=== PATIENT | female | born 1990 | race Caucasian/White ===

== ENCOUNTER 2022-01-05 08:44 | Outpatient (CLI) | payer BC, SELFPAY | END 2022-01-05 08:45 | disposition home or self-care (01) | PROVIDERS: PCP Physician Assistant Medical; Visit Provider Registered Nurse | DX: Z01.419 Encounter for gynecological examination (general) (routine) without abnormal findings (principal); Z12.4 Encounter for screening for malignant neoplasm of cervix; Z13.1 Encounter for screening for diabetes mellitus; Z11.3 Encounter for screening for infections with a predominantly sexual mode of transmission; Z13.6 Encounter for screening for cardiovascular disorders | CPT/HCPCS: 88174 ==

== ENCOUNTER 2022-01-26 08:44 | Outpatient (CLI) | payer BC, SELFPAY ==
[2022-01-26 11:09] LABS: Cholesterol* 175 mg/dL (90-199); Glucose* 86 mg/dL (60-115)
[2022-01-26 11:10] LABS: HDL Cholesterol* 60 mg/dL (>=50); LDL Cholesterol Calculated 95 mg/dL (<100); Triglycerides* 101 mg/dL (40-149)
== END 2022-01-26 08:45 | disposition home or self-care (01) ==
LOC: NFLDREF 08:59
PROVIDERS: Visit Provider Registered Nurse
DX: Z13.1 Encounter for screening for diabetes mellitus (principal); Z13.6 Encounter for screening for cardiovascular disorders
CPT/HCPCS: 80061; 82947

== ENCOUNTER 2022-03-16 07:43 | Outpatient (CLI) | payer BC, SELFPAY ==
--- NOTE | 2022-03-16 08:15 | CRLHL7_ITS ---
For Patients: As a result of the Cures Act, medical imaging exams and procedure reports are released immediately into your electronic medical record. You may view this report before your referring provider. If you have questions, please contact your health care provider. INDICATION: First trimester scan, establish dates. COMPARISON: None. TECHNIQUE: Real-time solomon-scale imaging of the pelvis was performed. FINDINGS: Sonographic imaging demonstrates a single living intrauterine gestation. The embryo demonstrates a regular cardiac rate measuring 152 beats per minute. The embryo`s crown-rump length measurement of 1.2 cm corresponds to a gestational age of 7 weeks 3 days with a sonographic due date of 10/30/2022. There is a normal-appearing yolk sac. There are no gross abnormalities noted within the embryo at this early state of development. The gestational sac has a normal appearance. There is no evidence of a perigestational hemorrhage. The amount of fluid within the sac appears appropriate for gestational age. The cervix is closed. The myometrium appears normal. The ovaries are of normal size. Corpus luteal cyst left ovary. There are no suspicious fluid collections noted in the cul-de-sac. IMPRESSION: Normal first trimester OB ultrasound exam. Gestational age calculated at 7 weeks 3 days with a sonographic due date of 10/30/2022. Dictated by Nabil Blankenship MD @ 03/16/2022 8:41:30 AM (Electronically Signed)
== END 2022-03-16 07:44 | disposition home or self-care (01) ==
PROVIDERS: Visit Provider Registered Nurse
DX: Z34.91 Encounter for supervision of normal pregnancy, unspecified, first trimester (principal); Z3A.01 Less than 8 weeks gestation of pregnancy
CPT/HCPCS: 76817; 86592; 86703; 86762; 86787; 86803; 86850; 86900; 86901; 87086; 87340; 87491; 87591

== ENCOUNTER 2022-06-13 13:44 | Outpatient (CLI) | payer BC, SELFPAY | END 2022-06-13 13:45 | disposition home or self-care (01) | PROVIDERS: PCP Obstetrics & Gynecology; Visit Provider Pediatrics Neonatal-Perinatal Medicine | DX: Z34.92 Encounter for supervision of normal pregnancy, unspecified, second trimester (principal); Z3A.20 20 weeks gestation of pregnancy | CPT/HCPCS: 76811 ==

== ENCOUNTER 2022-08-08 08:53 | Outpatient (CLI) | payer BC, SELFPAY | END 2022-08-08 08:54 | disposition home or self-care (01) | PROVIDERS: PCP Obstetrics & Gynecology; Visit Provider Obstetrics & Gynecology | DX: O26.893 Other specified pregnancy related conditions, third trimester (principal); Z67.91 Unspecified blood type, Rh negative; Z3A.28 28 weeks gestation of pregnancy | CPT/HCPCS: 85461; 86592; 86850; J2791 ==

== ENCOUNTER 2022-10-03 09:36 | Outpatient (CLI) | payer BC, SELFPAY ==
[2022-10-04 13:29] LABS: Strep B DNA Probe POSITIVE (Negative); Strep B Pen/Amox Allergy No
== END 2022-10-03 09:37 | disposition home or self-care (01) ==
LOC: NFLDREF 09:40
PROVIDERS: PCP Obstetrics & Gynecology; Visit Provider Obstetrics & Gynecology
DX: Z34.93 Encounter for supervision of normal pregnancy, unspecified, third trimester (principal); Z3A.36 36 weeks gestation of pregnancy
CPT/HCPCS: 87081; 87653

== ENCOUNTER 2022-12-12 13:27 | Outpatient (CLI) | payer BC, SELFPAY | END 2022-12-12 13:28 | disposition home or self-care (01) | LOC: NFLDREF 13:28 | PROVIDERS: PCP Obstetrics & Gynecology; Visit Provider Obstetrics & Gynecology | DX: Z39.2 Encounter for routine postpartum follow-up (principal); Z13.6 Encounter for screening for cardiovascular disorders; Z13.1 Encounter for screening for diabetes mellitus | CPT/HCPCS: 80061; 82947 ==

== ENCOUNTER 2023-02-19 08:38 | Day surgery (SDC) | payer BC, SELFPAY ==
[2023-02-19 08:51] VITALS: BMI 27.8
[2023-02-19 08:57] VITALS: BP 127/90; PULSE 82; RESP 20; TEMP 37.3; O2SAT 99
[2023-02-19 08:59] LABS: Ur HCG Qualitative* Negative (Negative)
[2023-02-19] MEDS: LACTATED RINGERS 1000 ML 1,000 ML 100 ML IV (09:05)
[2023-02-19] MEDS: SODIUM CHLORIDE 0.9 % (FLUSH) 10 ML SYRINGE IVF (09:08)
[2023-02-19 12:15] VITALS: BP 124/73; PULSE 70; RESP 20; O2SAT 99
--- NOTE | 2023-02-19 12:23 | W.ANESCHARGE ---
Anesthesia Charges Start Date/Time Anesthesia Start Date: 02/19/23 Anesthesia Start Time: 11:15 Stop Date/Time Anesthesia Stop Date: 02/19/23 Anesthesia Stop Time: 12:11
--- NOTE | 2023-02-19 12:27 | P.GYNPRC_ITS ---
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 Surgeon: Harris MD Any Commodity Buyer: Cara Back Estimated blood loss (mL): 10 Pathology: none sent Condition: stable Disposition: same day Findings: 2 cm hymenal tag arising from the left of midline at the introitus. Irregular redundant perineal skin. 3-4 finger spread at the introitus prior to the proce dure. Procedure Description: After obtaining informed consent, the patient was taken to the operating room where she received monitored anesthesia care. She was prepared and draped in the normal, sterile fashion in the dorsal lithotomy position. Examination was performed under anesthesia with the findings noted above. A total of 10 mL of 1% lidocaine with epinephrine was injected into the perineal skin and proximal vagina at the introitus. The hymenal tag was grasped and excised with a scalpel at its base. The excision base was reapproximated with a subcuticular figure of X suture of 3-0 chromic. A 2nd interrupted stitch of 3-0 chromic was placed over the mucosal surface. Excellent hemostasis was visualized. Allis clamps were placed at the posterior fourchette at the 5 and 7 o'clock positions. A v- shaped segment of perineal skin was then excised using the scalpel. A smaller inverted v-shaped portion of vaginal mucosa was also excised with the scalpal. The perineal body was reinforced with 2 interrupted sutures of 2-0 Vicryl. The vaginal mucosa was reapproximated in a running, locking fashion with 2-0 Vicryl. The remaining perineal skin was reapproximated in the usual layered sterile fashion using the 2-0 Vicryl suture. The knot was tied at the level of the hymen. Following the procedure the patient had a 2-3 finger spread at the introitus. The patient tolerated the procedure well. Sponge, lap, and needle counts were reported as correct x2. The patient was taken to the recover room awake and in stable condition.
[2023-02-19 12:30] VITALS: BP 116/72; PULSE 73; RESP 20; O2SAT 96
[2023-02-19 12:45] VITALS: BP 121/81; PULSE 61; RESP 20; O2SAT 100
--- NOTE | 2023-02-19 12:51 | SUR.PHASEII ---
Pt tolerated toast juice and soda Discharge instructions gone over with Pt. Pt understood. Pt wanting to rest for awhile v.s.s.
[2023-02-19 13:13] VITALS: BP 117/80; PULSE 73; RESP 20; TEMP 36.7; O2SAT 100
[2023-02-19 13:45] VITALS: BP 135/90; PULSE 75; RESP 20; O2SAT 95
== END 2023-02-19 14:00 | disposition home or self-care (01) ==
PROVIDERS: PCP Family Medicine; Visit Provider Obstetrics & Gynecology
PROC: 0UQG0ZZ Repair Vagina, Open Approach (ICD-10-PCS; CPT 56810; principal; 2023-02-19 09:45)
DX: N94.819 Vulvodynia, unspecified (principal); N89.8 Other specified noninflammatory disorders of vagina
CPT/HCPCS: 56810; 56700; 81025; 940; A9270; J1885; J2250; J2704; J3010; J7120

== ENCOUNTER 2023-11-07 09:11 | Outpatient (CLI) | payer BC, SELFPAY | END 2023-11-07 09:12 | disposition home or self-care (01) | PROVIDERS: PCP Family Medicine; Visit Provider Registered Nurse | DX: Z13.220 Encounter for screening for lipoid disorders (principal); Z13.1 Encounter for screening for diabetes mellitus | CPT/HCPCS: 80061; 82947 ==

== ENCOUNTER 2024-05-13 07:59 | Outpatient (CLI) | payer BC, SELFPAY ==
--- NOTE | 2024-05-13 08:15 | CRLHL7_ITS ---
For Patients: As a result of the Cures Act, medical imaging exams and procedure reports are released immediately into your electronic medical record. You may view this report before your referring provider. If you have questions, please contact your health care provider. INDICATION: First trimester scan, establish dates. COMPARISON: None. TECHNIQUE: Real-time solomon-scale imaging of the pelvis was performed. FINDINGS: Sonographic imaging demonstrates a single living intrauterine gestation. The embryo demonstrates a regular cardiac rate measuring 180 beats per minute. The embryo`s crown-rump length measurement of 2.4 cm corresponds to a gestational age of 9 weeks 0 days with a sonographic due date of 12/16/2024. There is a normal-appearing yolk sac. There are no gross abnormalities noted within the embryo at this early state of development. The gestational sac has a normal appearance. There is no evidence of a perigestational hemorrhage. The amount of fluid within the sac appears appropriate for gestational age. The cervix is closed. The myometrium appears normal. Unremarkable right ovary. Corpus luteal cyst left ovary measures 2.7 x 2.0 x 1.8 cm. There are no suspicious fluid collections noted in the cul-de-sac. IMPRESSION: Single living intrauterine with sonographic gestational age 9 weeks 0 days and sonographic due date of 12/16/2024. Dictated by Nabil Blankenship MD @ 05/13/2024 12:02:41 PM (Electronically Signed)
== END 2024-05-13 08:00 | disposition home or self-care (01) ==
LOC: US 08:01
PROVIDERS: Visit Provider Registered Nurse
DX: Z34.91 Encounter for supervision of normal pregnancy, unspecified, first trimester (principal); Z3A.09 9 weeks gestation of pregnancy
CPT/HCPCS: 76817

== ENCOUNTER 2024-05-13 10:15 | Outpatient (CLI) | payer BC, SELFPAY | END 2024-05-13 10:16 | disposition home or self-care (01) | PROVIDERS: PCP Registered Nurse; Visit Provider Registered Nurse | DX: Z34.91 Encounter for supervision of normal pregnancy, unspecified, first trimester (principal); Z3A.09 9 weeks gestation of pregnancy | CPT/HCPCS: 82565; 82570; 84156; 84450; 84460; 84520; 84550; 86592; 86703; 86704; 86706; 86762; 86787; 86803; 86850; 86900; 86901; 87086; 87340 ==

== ENCOUNTER 2024-05-15 05:30 | Outpatient (CLI) | payer BC, SELFPAY | END 2024-05-15 05:31 | disposition home or self-care (01) | LOC: NFLDREF 05-17 09:42 | PROVIDERS: Visit Provider Registered Nurse | DX: Z34.81 Encounter for supervision of other normal pregnancy, first trimester (principal) | CPT/HCPCS: 82570; 84156 ==

== ENCOUNTER 2024-09-28 08:24 | Outpatient (CLI) | payer BC, SELFPAY | END 2024-09-28 08:25 | disposition home or self-care (01) | LOC: NFLDREF 08:24 | PROVIDERS: Visit Provider Obstetrics & Gynecology | DX: Z34.93 Encounter for supervision of normal pregnancy, unspecified, third trimester (principal); Z3A.28 28 weeks gestation of pregnancy | CPT/HCPCS: 86592; 86850; J2791 ==

== ENCOUNTER 2024-11-24 08:24 | Outpatient (CLI) | payer BC, SELFPAY ==
[2024-11-25 16:55] LABS: Strep B Susceptibility Needed? No
[2024-11-25 17:15] LABS: Strep B DNA Probe POSITIVE (Negative)
== END 2024-11-24 08:25 | disposition home or self-care (01) ==
LOC: NFLDREF 08:24
PROVIDERS: Visit Provider Obstetrics & Gynecology
DX: Z34.93 Encounter for supervision of normal pregnancy, unspecified, third trimester (principal); Z3A.36 36 weeks gestation of pregnancy
CPT/HCPCS: 87081; 87653

== ENCOUNTER 2024-12-17 06:05 | Inpatient (IN) | payer BC, SELFPAY ==
[2024-12-17] VITALS (33 sets, daily range): BP systolic 95–143; BP diastolic 53–83; PULSE 67–101; RESP 16–20; TEMP 36.4–36.8; O2SAT 96–100; BMI 32.6
[2024-12-17 07:12] LABS: Hematocrit 34.7 % (33.0-51.0); Hemoglobin* 11.2 gm/dL (12.0-16.0); Immature Granulocytes Abs Auto 0.04 K/uL (0.00-0.30); Immature Granulocytes Pct Auto 0.4 %; Mean Corpuscular HGB Conc 32 gm/dL (32-36); Mean Corpuscular Hemoglobin 28 pg (26-34); Mean Corpuscular Volume 85 fL (80-100); RDW Coefficient of Variation % 14.0 % (11.5-15.5); Red Blood Count 4.07 m/uL (4.00-5.20); White Blood Count* 10.39 K/uL (4.50-11.00)
[2024-12-17 07:17] LABS: Lymphocytes Absolute Auto 2.00 K/uL (0.90-2.90); Slide Review Reflex No
--- NOTE | 2024-12-17 07:47 | W.PM.LDBA ---
Subjective History of Present Illness Time Seen by Provider: 07:48 Date Seen: 12/17/24 Narrative: Cyndi is being admitted to Labor and Delivery for elective induction of labor. She is a 34 year old at 39 and 4/7 weeks gestation. Her full history and physical was dictated by Dr. Chaney on 12/02/2024. Please see this for details. Cyndi had a precipitous delivery with her 2nd baby. Planning to start Pitocin per her labor induction, start ampicillin for GBS prophylaxis and she is planning an epidural once she has some regular contractions then artificial rupture of membranes. Notes normal movement. Has had some irregular contractions, no leaking fluid, vaginal bleeding, swelling or headaches. Specific Issues/Plans G 3 P 2 : Amol Children: Shade [place] Baby: [place]! # Precipitous delivery. Delivery 1hr 17min after ROM. desires discussion about IOL Scheduled for turned in on 12/02. Tentative cervical ripening on 16 --> 17 # History of hemorrhage. IV and IM Pitocin and IM Methergine and [place] cytotec. # History of gestational hypertension baselines pre E labs: PC: 0.35/elevated. Await 24 hour urine. 24 hour protein: 354mg recommend daily low dose aspirin at 12 weeks # Patient had h/o diaphragmatic hernia (repaired at 6wks of age) level 2 US # GBS positive. No antibiotic allergy Ampicillin in labor [Plan for testing] H&P: Dr. Chaney on 12/02/24 Imagin08/19/24: EFW 73rd percentile AC 72nd percentile. Breech presentation. No previa/anterior. Three-vessel cord. MVP 7.3 cm no anatomy commonly detected by ultrasound were identified. Transabdominal imaging of the cervix appeared long and closed. Vaccinations: Flu: Recommended, declines at this visit Covid: Recommended, declines at this visit Tdap: 10/15/2024 RSV: N/A 32 week mental health: 10/27/24 Hgb: 11.0 GBS: positive Last pap: 01/05/2022, normal OB - Problem Based A/P Additional Plan (1) Encounter for induction of labor: Status: Acute Plan 1. Start Pitocin per labor induction protocol 2. Start ampicillin for GBS prophylaxis 3. The patient is planning an epidural for labor analgesia. 4. After the patient has an epidural, AROM. 5. H/O hemorrhage: planning TXA in the 2nd stage of labor and AMTSL. 6. Blood type is B negative. OB Exam Physical Exam Vital signs: Temp Pulse Resp BP 98.2 F 96 18 125/83 12/17/24 06:30 12/17/24 06:24 12/17/24 06:30 12/17/24 06:24 Narrative: GENERAL APPEARANCE: Pleasant, , well-groomed woman in no acute distress. VITAL SIGNS: as noted in nursing notes HEAD: Normocephalic, atraumatic. THYROID: no masses, nodularity, tenderness or enlargement. LUNGS: Clear to auscultation bilaterally without wheezes, rales or rhonchi. HEART: Regular rate and rhythm with normal S1 and S2. No gallop, rub or murmur. ABDOMEN: Gravid. Soft, nontender, nondistended, with normal bowels sounds throughout. EFM: Baseline: 140 bpm. Accelerations: Present. Decelerations: Absent. Moderate variability. Reactive. TOCO: Q 10-12 minutes. PRESENTATION: Vertex by Rolly's maneuvers and bedside ultrasound. SVE: 4 cm/ 60 %/-2/soft/post. Parham score: 7 EXTREMITIES: No cyanosis, clubbing, or edema. No varicosities. NEUROLOGIC: Normal gait and balance. Normal deep tendon reflexes at bilateral patella 2+/2, equal without clonus. PSYCHIATRIC: alert and oriented x3. Normal speech pattern, eye contact and affect. SKIN: Warm, dry, and well perfused. Good turgor. No lesions, nodules or rashes.
[2024-12-17] MEDS: AMPICILLIN 2 GM in 0.9 % SODIUM CHLORIDE Mini-bag 100 ML IVPB (08:10)
[2024-12-17] MEDS: LACTATED RINGERS 1000 ML 1,000 ML 125 ML IV (08:11)
[2024-12-17] MEDS: OXYTOCIN 30 unit/500 ML in NS 30 UNIT/500 ML BAG IVPB (08:11)
[2024-12-17] MEDS: ROPIVACAINE 0.2% 100 ml 100 ML 12 MG EPIDURAL (11:43)
[2024-12-17] MEDS: LIDOCAINE 2% (PF) 5 ML VIAL EPIDURAL (11:43)
--- NOTE | 2024-12-17 11:58 | PM.ANBPRC ---
[facility] Medical History Yeast vaginitis ?B37.31 - Acute candidiasis of vulva and vagina (ICD-10) History of gestational hypertension ?Z87.59 - Personal history of other complications of , childbirth and the puerperium (ICD-10) ?Z86.79 - Personal history of other diseases of the circulatory system (ICD-10) hemorrhage ?O72.1 - Other immediate hemorrhage (ICD-10) Tinea corporis ?B35.4 - Tinea corporis (ICD-10) Anemia due to acute blood loss ?D62 - Acute posthemorrhagic anemia (ICD-10) Second degree perineal laceration ?O70.1 - Second degree perineal laceration during delivery (ICD-10) Precipitous delivery, delivered (current hospitalization) (11/01/22) ?O62.3 - Precipitate labor (ICD-10) Ringworm ?B35.9 - Dermatophytosis, unspecified (ICD-10) Normal spontaneous vaginal delivery ?O80 - Encounter for full-term uncomplicated delivery (ICD-10) Surgical History History of perineoplasty ?Z98.890 - Other specified postprocedural states (ICD-10) ?Z87.42 - Personal history of other diseases of the female genital tract (ICD-10) History of surgery ?Z98.890 - Other specified postprocedural states (ICD-10) Family History Father CHF (congestive heart failure) Family/Other CHF (congestive heart failure) Social History What is your current living situation?: I presently have a place to live Problems where you live: no known problems In the past 12 months, utilities in danger of being shut off: no In past 12 months, lack of transportation kept you from medical appts, meetings, work, or getting things needed for daily living: no In the past 12 mos, have been you worried that your food would run out before you had money to buy more?: never true In the past 12 mos, the food you bought just didn't last and you didn't have money to buy more?: never true Smoking Status: Never smoker How often do you have a drink containing alcohol: 2-3 times a week How many standard drinks containing alcohol do you have on a typical day: 1 or 2 How often do you have six or more drinks on one occasion: Never AUDIT-C Alcohol total score: 3 How often does anyone, including family, friends and others, physically hurt you: never How often does anyone, including family, friends and others, insult or talk down to you: never How often does anyone, including family, friends and others, threaten you with harm: never How often does anyone, including family, friends and others, scream or curse at you: never Meds Home Medications and Allergies Home Medications ?Medication ?Instructions ?Recorded ?Confirmed ?Type prenat.vits,anna,[id number] 1 tab PO QDAY 03/16/22 12/17/24 History aspirin 81 mg tablet,delayed 81 mg PO QDAY 06/08/24 12/17/24 History release ketoconazole 2 % topical foam 1 applic topical BID PRN 06/08/24 12/17/24 History triamcinolone acetonide 0.1 % 1 applic topical QDAY PRN 06/08/24 12/17/24 History topical cream Allergies Allergy/AdvReac Type Severity Reaction Status Date / Time No Known Allergies Allergy Unknown Verified 12/17/24 06:30 Results Labs Labs: Laboratory Results - last 24 hr 12/17/24 06:46 WBC 10.39 RBC 4.07 Hgb 11.2 L Hct 34.7 MCV 85 MCH 28 MCHC 32 RDW Coeff of Lazarus 14.0 Plt Count 234 Neut % (Auto) 71.2 Lymph % (Auto) 19.2 L [place] % (Auto) 8.3 Eos % (Auto) 0.7 Baso % (Auto) 0.2 Neut # (Auto) 7.41 H Lymph # (Auto) 2.00 [place] # (Auto) 0.90 Eos # (Auto) 0.07 Baso # (Auto) 0.02 Abs Immat Gran (auto) 0.04 Imm/Tot Granulo (auto) 0.4 Blood Type B Negative Antibody Screen POSITIVE Vital Signs Vital Signs: Last Vital Signs Temp 98.3 F 12/17/24 08:26 Pulse 80 12/17/24 11:54 Resp 18 12/17/24 06:30 BP 112/62 12/17/24 11:54 Pulse Ox 100 12/17/24 11:04 Weight: 109.27 kg Height: 182.88 cm Anesthesia Procedures Epidural Insertion Start Time: 11:00 Stop Time: 12:00 Start Date: 12/17/24 Stop Date: 12/17/24 Reason for Block: primary anesthetic Patient Position: sitting Performed By: Nicolas Laguerre Preanesthetic Checklist: risks and benefits discussed and anesthesia consent Prep: chlorhexidine gluconate Monitoring: blood pressure monitoring and continuous pulse oximetry Approach: midline Vertebral Space: lumbar (1-5) Epidural Technique: TEODORA saline Needle Type: Tuohy needle Injection Technique: continuous catheter Needle gauge: 17 Needle Length (cm): 10 cm Needle Insertion Depth (cm): 8 Catheter Gauge: 19 Catheter Type: multi-orifice Catheter at skin depth (cm): 12 Test Dose Result: negative and lidocaine 1.5% with epinephrine 1 to 200,000
[2024-12-17 12:08] LABS: Hematocrit 36.6 % (33.0-51.0); Hemoglobin* 11.6 gm/dL (12.0-16.0); Mean Corpuscular HGB Conc 32 gm/dL (32-36); Mean Corpuscular Hemoglobin 27 pg (26-34); Mean Corpuscular Volume 86 fL (80-100); Red Blood Count 4.26 m/uL (4.00-5.20); Slide Review Reflex No; White Blood Count* 11.35 K/uL (4.50-11.00)
[2024-12-17] MEDS: AMPICILLIN 1 GM in 0.9 % SODIUM CHLORIDE Mini-bag 100 ML IVPB (12:18)
[2024-12-17 12:26] LABS: Alanine Aminotransferase* 16 U/L (4-35); Aspartate Amino Transferase* 26 U/L (12-35); Blood Urea Nitrogen* 9 mg/dL (5-24); Creatinine* 0.6 mg/dL (0.5-1.5); Est. Creatinine Clearance* 155.34; Estimated Glomerular Filt Rate 122 ml/min
[2024-12-17] MEDS: TRANEXAMIC ACID 100 MG/ML INJ 1000 MG IV (12:45)
--- NOTE | 2024-12-17 13:38 | W.PM.OBVAGDE ---
OB Procedure Vag Delivery Mother Details Mother Details: Cyndi is a 34 year-old G 3 P 2 now 3 admitted on 12/17/2024 at 6:00 a.m. at 39 Weeks, for Days gestation for elective induction of labor. SROM occurred at 12:27 p.m. on 12/17/2024 with clear fluid. Labor Analgesia: Epidural Pitocin: Yes Labor onset: 12/17/2024 at 11:00 a.m.. Complete: 12/17/2024 at 12:27 p.m.. Pushin12/17/2024 at 12:44 p.m.. heart tones during second stage were: Moderate variability with intermittent variable, early and late decelerations, reassuring. At 1:12 p.m. a viable male delivered in vertex direct OA presentation over second-degree perineal laceration via normal spontaneous vaginal delivery. The infant was placed on maternal abdomen. Cord was clamped and cut after a 60 second delay. Nose and mouth were bulb suctioned. Infant weight pending. 8 at 1 minute and 9 at 5 minutes. Shoulder dystocia: No. Nuchal cord: No. The patient received 1 g IV TXA during the 2nd stage. Placenta delivered spontaneously and complete at 1:26 p.m. with a 3 vessel cord. Laceration(s): Second-degree perineal. Repaired using 3-0 Vicryl suture in the usual manner. Blood loss: 25 mL. Blood loss measurement type: Quantitative Sponge and needles counts are correct. Specimen: None Mother and were stable after delivery. 's name: Pending The patient is planning on bottle feeding. : 3 Para: 2 Weeks Gestation: 39 Admission Date: 12/17/24 Additional Details Amniotic Membrane Status: SROM Amniotic Membrane Rupture Date: 12/17/24 Amniotic Membrane Rupture Time: 12:27 Amniotic Membrane Fluid Description: Clear Analgesia/Anesthesia Type: Epidural Waterbirth: No Pitcoin: Yes Intrapartal Events: Labor Induction Induction Method: per pitocin protocol Labor Onset: 11:00 Complete: 12:27 Pushin:44 Heart: \ Delivery Details Delivery Date: 12/17/24 Delivery Time: 13:12 Route of delivery: Gender: Male Infant Viability: Alive; Heart Rate Present Position at Delivery: OA 1 Minute Interval Total Score: 8 5 Minute Interval Total Score: 9 Additional Details Shoulder Dystocia: No Placenta Delivery Time: 13:26 Placental Delivery Description: Spontaneous Delivery repair: Vicryl Procedure Done: Global Blood Loss: 25 Laceration: Perineal - 2nd Degree Blood Loss Measurement Type: QBL Bakri Used: No Sponge/Need Count Correct: Yes Cord Vessel Description: 3 Vessels Event Summary Status: Mother and were stable after delivery. Disposition: floor
[2024-12-17] MEDS: IBUPROFEN 600 MG TABLET PO ×2 (16:13→22:04)
[2024-12-18] MEDS: ACETAMINOPHEN 500 MG TABLET 1000 MG PO ×3 (01:10→21:08)
[2024-12-18 01:18] VITALS: BP 116/76; PULSE 76; RESP 20; TEMP 36.9; O2SAT 97
[2024-12-18] MEDS: IBUPROFEN 600 MG TABLET PO ×3 (04:43→18:58)
[2024-12-18 04:45] VITALS: BP 120/74; PULSE 71; RESP 20; TEMP 36.5; O2SAT 98
[2024-12-18 06:35] LABS: Hemoglobin* 11.4 gm/dL (12.0-16.0)
[2024-12-18 08:28] VITALS: BP 117/78; PULSE 71; RESP 18; TEMP 37.1; O2SAT 97
--- NOTE | 2024-12-18 08:48 | PM.OBPNVD1 ---
OB - PN:Subj Subjective Date Seen: 12/18/24 Narrative: Cyndi is a 34 y.o. who was admitted to L & D for induction of labor.? She had an uncomplicated NVD.? ?? The patient feels well.? The pain is well controlled with current medications.? She has no new complaints.? She is formula feeding and reports things are going well.? the patient has done well.? Vitals have been stable.? She has remained afebrile.? Has a good appetite, is tolerating a general diet.? She is voiding without difficulty.? She is passing gas and has not had a bowel movement.? She is ambulating and denies any dizziness.? Has Small amount of rubra lochia.? OB - PN: Obj Exam Physical Exam: Vital signs: Temp Pulse Resp BP Pulse Ox O2 Del Method 98.7 F 71 18 117/78 97 Room Air 12/18/24 08:28 12/18/24 08:28 12/18/24 08:28 12/18/24 08:28 12/18/24 08:28 12/18/24 08:28 Narrative: GENERAL APPEARANCE:? normal affect, alert, no distress? MOOD:? appropriate? HEENT: normocephalic, neck supple, full ROM? CHEST:? Symmetrical chest wall movement.? Normal respiratory effort.? Clear to auscultation ? HEART:? regular rate and rhythm? ABDOMEN:? soft, non-tender. Uterine fundus is firm, at Umbilicus, Midline and is appropriate for the stage of recovery.? Bowel sounds present.? PERINEUM:? mild edema of the perineum, there is a 2nd degree laceration that is healing well.? EXTREMITIES:? normal and no edema? OB - PN: Obj Data Labs Labs: Laboratory Results - last 24 hr 12/17/24 12/17/24 12/18/24 06:09 11:57 06:09 WBC 11.35 H RBC 4.26 Hgb 11.6 L 11.4 L Hct 36.6 MCV 86 MCH 27 MCHC 32 Plt Count 257 BUN 9 Creatinine 0.6 Estimated Creat Clear 155.34 Estimated GFR 122 AST 26 ALT 16 Screen Negative OB - PN: A/P Delivery Assessment and Plan (1) care and examination of lactating mother: Status: Acute (2) (normal spontaneous vaginal delivery): Problem details: Boy. Apgars 8/9 1:12Pm Status: Acute Plan day: 1 Comments: G 3 P 3 status post uncomplicated NVD??? 1.? Continue route PP cares? 2.? .? May see if desired? 3.? Anticipate discharge home tomorrow?
--- NOTE | 2024-12-18 13:47 | PM.ANPOST ---
Post Anesthesia Note Post Anesthesia Note Patient seen: Inpatient Respiratory Status: adequate Cardiovascular Status: adequate Mental Status: baseline Pain: adequate Temp: baseline Anesthetic awareness: no Complications: none Follow care: none
[2024-12-18 14:25] VITALS: BP 116/77; PULSE 88; RESP 16; TEMP 36.9; O2SAT 99
[2024-12-18 20:18] VITALS: BP 128/87; PULSE 72; RESP 20; O2SAT 99
[2024-12-19] MEDS: IBUPROFEN 600 MG TABLET PO ×2 (01:02→07:10)
[2024-12-19] MEDS: ACETAMINOPHEN 500 MG TABLET 1000 MG PO (02:51)
[2024-12-19 03:03] VITALS: BP 117/81; PULSE 60; RESP 18; TEMP 36.4; O2SAT 99
[2024-12-19 08:00] VITALS: BP 148/88
--- NOTE | 2024-12-19 09:53 | P.DS_ITS ---
DS: Providers Provider Date Seen: 12/19/24 Date of admission: 12/17/24 06:05 Primary care physician: Not a Local Provider Admitting Clinician: Niecy Delaney MD Attending Physician on discharge: Daniel Back MD Exam Narrative: Exam Narrative: Vital signs reviewed and within normal limits. General: Alert and oriented, no acute distress Psych: Appropriate mood and affect Abdomen: Soft, nontender nondistended. Fundus palpates firm at umbilicus. Extremities: No significant edema. No calf erythema/tenderness. Const: Vital Signs, click to edit/add: Vital Signs - 24 hr 12/18/24 14:25 12/18/24 20:18 12/19/24 03:03 Temperature 98.4 F 97.6 F Pulse Rate [Pulse Oximeter] 88 72 60 Respiratory Rate 16 20 18 Blood Pressure [Le ft Arm] 116/77 128/87 117/81 Pulse Oximetry 99 99 99 Oxygen Delivery Me thod Room Air Room Air 12/19/24 07:42 Temperature 97.8 F Pulse Rate [Pulse Oximeter] 72 Respiratory Rate 18 Blood Pressure [Le ft Arm] 122/83 Pulse Oximetry 99 Oxygen Delivery Me thod Room Air OB - DS: Summary Hospital Course Hospital Course: The patient is a 34 year old G 3 P 3 at 39 weeks gestation that was admitted to the Center on 12/17/24 for elective induction of labor. She had an uncomplicated vaginal delivery. She delivered a viable male infant. She is bottle feeding. the patient has done well. Cyndi notes her pain is overall well controlled on ibuprofen/Tylenol. Lochia is described as small volume. She is tolerating p.o. intake without nausea/vomiting. Voiding spontaneously, passing flatus. Has not yet had a bowel movement since delivery. Ambulates without difficulty. She denies chest pain, dyspnea, dizziness lightheadedness, fevers or chills. Patient is bottle feeding. She notes she did this previously, is aware of methods to suppress and symptomatic management. Peripartum Data delivery method: Vaginal Laceration description: Perineal - 2nd Degree Infant Gender: Male Time Spent with Patient Time attestation: Total time spent providing and/or coordinating discharge services: Time spent: Less than 30 minutes Discharge Plan Discharge Disposition: Home, Self-Care Date of Admission: 07/17/25 06:05 Consulting Providers: Niecy Delaney Primary Care Provider: Provider,Not a Local Condition: Stable Anticipated Discharge Date/Time: 12/19/24 09:56 Discharge Medications: Continued prenat.vits,anna,[id number] Tablet 1 tab PO QDAY ketoconazole 2 % foam 1 applic topical BID PRN triamcinolone acetonide 0.1 % cream 1 applic topical QDAY PRN Discontinued aspirin 81 mg tablet,delayed release (DR/EC) 81 mg PO QDAY Discharge Orders: Discharge Order (Routine); Ordered 12/19/24 Ordered By: Cara Back Additional Instructions: Discharge instructions were reviewed with the patient including signs and symptoms of infection and home going medications Nothing vaginally for 6 weeks: no tampons or intercourse Do not drive while taking narcotic pain medication(s) Off Work or School for 8 weeks Symptoms to report to doctor: * Bleeding that saturates more than one pad per hour * Passing clots larger than the size of a golf ball * Pain not relieved by prescribed medication * Fever above 100.4 degrees Fahrenheit * A foul vaginal odor * Difficulty in emotions, mood, and functions * Thoughts of hurting yourself and/or * Painful, reddened area in your breast * Any drainage, redness, or tenderness in your IV/epidural site * Severe headache that doesn't improve after taking medications * Changes in vision, including temporary loss of vision, blurred vision, and/or light sensitivity * Upper abdominal pain (usually under ribs on the right side) * Decrease in urination or painful, frequent urinating * Chest pain * Shortness of breath * Tenderness or pain with redness and/swelling in the calf(s) of your leg Optional 2-week visit: discuss feeding concerns, review control options and screen for anxiety/depression. 6-week visit for an annual exam. consultation services are available to all mothers and babies for the first year after delivery.? To make an appointment, please call [phone]. Follow Up Appointments: Provider,Not a Local [Primary Care Provider, Family Practice] Forms: [employer] Info Instructions
== END 2024-12-19 12:00 | disposition home or self-care (01) | DRG 560 ==
PROVIDERS: Admitting Provider Obstetrics & Gynecology; Visit Provider Obstetrics & Gynecology
DX: O99.824 Streptococcus B carrier state complicating childbirth (principal); O70.1 Second degree perineal laceration during delivery; Z3A.39 39 weeks gestation of pregnancy; Z37.0 Single live birth
CPT/HCPCS: 01967; 36415; 76815; 82565; 82570; 84156; 84450; 84460; 84520; 85018; 85025; 85027; 85461; 86592; 86850; 86870; 86900; 86901; G0463; A9270; J0290; J2791; J2795; J3010; J7120

== ENCOUNTER 2025-01-27 10:56 | Outpatient (CLI) | payer BC, SELFPAY ==
[2025-01-29 08:44] LABS: HPV Source Cervix
[2025-01-30 13:48] LABS: Pap Test Digital Imaging Done
== END 2025-01-27 10:57 | disposition home or self-care (01) ==
PROVIDERS: Visit Provider Obstetrics & Gynecology
DX: Z13.6 Encounter for screening for cardiovascular disorders (principal); Z13.1 Encounter for screening for diabetes mellitus; Z11.51 Encounter for screening for human papillomavirus (HPV); Z12.4 Encounter for screening for malignant neoplasm of cervix
CPT/HCPCS: 80061; 82947; 87624; 87625; 88141; 88142; 88175